=== PATIENT | male | born 1940 | race Caucasian/White ===

== ENCOUNTER 2016-04-04 10:55 | Inpatient (IN) | payer OTHER, MEDICARE ==
[~2016-04-04] VITALS: Ht 180.3 cm; Wt 63.8 kg
[~2016-04-04 10:55] MED LIST: ASPI325T PO; ATOR40TA16 PO; CARV3.125 PO; ENBR50IN2 SQ; FURO1TAB62 PO; LEVO100T5 PO; LISI10TA3 PO; MULTTAB67 PO; PLAV75TA29 PO; POTA1TAB4 PO; PROPOFOL 200 MG/20 ML AMP IV ONE
[2016-04-04] MEDS ORDERED: BACT400T PO (12:13)
[2016-04-04] MEDS ORDERED: VANCOMYCIN INJ 1,000 MG in SODIUM CHLOR 0.9% 250 ML INJ 250 ML IV STA (12:32)
[2016-04-04] MEDS ORDERED: CLINDAMYCIN INJ 900 MG in SODIUM CHLORIDE 0.9% INJ 100 ML IV STA (12:32)
[2016-04-04] MEDS ORDERED: PIPERACIL-TAZO 4.5 GM PREMIX 100 ML IV STA (12:32)
[2016-04-04 12:57] LABS: AUTOMATED NEUTROPHIL # 6.1 TH/MM3 (1.8-7.7); BASOPHIL % 0.3 % (0.0-2.0); EOSINOPHIL % 0.1 % (0.0-4.0); HEMATOCRIT 34.1 % (39.0-51.0); HEMO FLAGS DIFF FINAL; LYMPHOCYTE # 0.7 TH/MM3 (1.0-4.8); MEAN CORPUSCULAR HEMOGLOBIN 27.9 PG (27.0-34.0); MEAN CORPUSCULAR HGB CONC 33.3 % (32.0-36.0); MONO % 7.7 % (0.0-8.0); NEUT % 82.9 % (16.0-70.0); PLATELET COUNT 252 TH/MM3 (150-450); RED BLOOD COUNT 4.06 MIL/MM3 (4.50-5.90); RED CELL DISTRIBUTION WIDTH 15.1 % (11.6-17.2); WHITE BLOOD COUNT 7.3 TH/MM3 (4.0-11.0)
--- NOTE | 2016-04-04 13:04 | PD ---
HPI Chief Complaint: Skin Problem Time Seen by Provider: 12:35 Travel History International Travel<30 days: No Contact w/Intl Traveler<30days: No Traveled to known affect area: No History of Present Illness HPI 75-year-old male sent in by Dr. Rodriguez, for ongoing open nonhealing wound on the right lateral calf. Patient had injury to this area secondary to a bruise caused by his dogs chain wrapping around his right lower leg, but has ongoing nonhealing status post this time. Patient was sent in to be evaluated for vascular patency in the right lower leg, prior to plastic surgeon intervention. Dr. Campbell is the dramatic teacher evaluating the patient. Patient has no fever, chills, or other symptoms. He has no known drug allergies. PFSH Past Medical History Hx Anticoagulant Therapy: Yes (PLAVIX) Arthritis: Yes Cancer: No Cardiovascular Problems: Yes High Cholesterol: Yes Chest Pain: No Congestive Heart Failure: Yes Diabetes: No Diminished Hearing: No Endocrine: No Gastrointestinal Disorders: No Glaucoma: No Genitourinary: No Hepatitis: No Hiatal Hernia: No Hypertension: Yes Implanted Vascular Access Dvce: Yes Musculoskeletal: Yes Neurologic: No Psychiatric: No Respiratory: Yes ( ) Integumentary: No Thyroid Disease: Yes (hypothyroid) Tetanus Vaccination: Unknown Influenza Vaccination: Yes Past Surgical History Body Medical Devices: BILAT KNEES AND HIPS Coronary Stent: Yes Neurologic Surgery: Yes (CRANI 1979) Other Surgery: Yes Social History Alcohol Use: No Tobacco Use: No Substance Use: No Allergies-Medications (Allergen,Severity, Reaction): Coded Allergies: No Known Allergies (Verified , 04/04/16) Reported Meds & Prescriptions Reported Meds & Active Scripts Active Reported Bactrim (Sulfamethoxazole-Trimethoprim) 400-80 Mg Tab 1 Tab PO BID K-Tab (Potassium Chloride) 20 Meq Tab 20 Meq PO BID Multiple Vitamin 1 Tab 1 Tab PO DAILY Lisinopril 10 Mg Tab 10 Mg PO DAILY Levothyroxine (Levothyroxine Sodium) 100 Mcg Tab 100 Mcg PO DAILY Lasix (Furosemide) 20 Mg Tab 20 Mg PO BID Enbrel PF Inj (Etanercept) 50 mg/ml Syr 25 Mg SQ Q7D Plavix (Clopidogrel Bisulfate) 75 Mg Tab 75 Mg PO DAILY Coreg (Carvedilol) 3.125 Mg Tab 3.125 Mg PO BID Atorvastatin (Atorvastatin Calcium) 40 Mg Tab 40 Mg PO HS Aspirin 325 Mg Tab 325 Mg PO DAILY Review of Systems Except as stated in HPI: all other systems reviewed are Neg General / Constitutional: No: Fever Eyes: No: Visual changes HENT: No: Headaches Cardiovascular: No: Chest Pain or Discomfort Respiratory: No: Shortness of Breath Gastrointestinal: No: Abdominal Pain Genitourinary: No: Dysuria Musculoskeletal: No: Pain Skin: No Rash Neurologic: No: Weakness Psychiatric: No: Depression Endocrine: No: Polydipsia Hematologic/Lymphatic: No: Easy Bruising Physical Exam Narrative GENERAL: Patient appears in no acute distress. SKIN: Warm and dry. Patient is a large dressing on the right lower lateral calf which is kept in place, as it was just placed. Right lower foot is warm, and has good color. Patient does have multiple facial bruising throughout. HEAD: Atraumatic. Normocephalic. EYES: Pupils equal and round. No scleral icterus. No injection or drainage. ENT: No nasal bleeding or discharge. Mucous membranes pink and moist. NECK: Trachea midline. Neck is supple nontender. CARDIOVASCULAR: Regular rate and rhythm. RESPIRATORY: No accessory muscle use. Clear to auscultation. Breath sounds equal bilaterally. GASTROINTESTINAL: Abdomen soft, non-tender, nondistended. Hepatic and splenic margins not palpable. MUSCULOSKELETAL: Extremities without clubbing, cyanosis, or edema. No obvious deformities. NEUROLOGICAL: Awake and alert. No obvious cranial nerve deficits. Motor grossly within normal limits. Five out of 5 muscle strength in the arms and legs. Normal speech. PSYCHIATRIC: Appropriate mood and affect; insight and judgment normal. Data Data Orders Complete Blood Count With Diff (04/04/16 12:32) Comprehensive Metabolic Panel (04/04/16 12:32) Prothrombin Time / Inr (Pt) (04/04/16 12:32) Act Partial Throm Time (Ptt) (04/04/16 12:32) Iv Access Insert/Monitor (04/04/16 12:32) Ecg Monitoring (04/04/16 12:32) Oximetry (04/04/16 12:32) NPO (04/04/16 12:32) Sodium Chloride 0.9% Flush (Ns Flush) (04/04/16 12:45) Electrocardiogram (04/04/16 12:32) Oxygen Administration (04/04/16 12:32) Piperacil-Tazo 4.5 Gm Premix (Zosyn 4.5 (04/04/16 12:32) Clindamycin Inj (Cleocin Inj) (04/04/16 12:32) Vancomycin Inj (Vancomycin Inj) (04/04/16 12:32) Consult Cardiology (04/04/16 ) (Hub Use Only)Inp Phy Cons/Ref (04/04/16 ) Echo 2d Comp W/Dopp(Routine) (04/04/16 ) Admit Order (Ed Use Only) (04/04/16 13:39) Labs Laboratory Tests Test 04/04/16 12:30 White Blood Count 7.3 TH/MM3 Red Blood Count 4.06 MIL/MM3 Hemoglobin 11.3 GM/DL Hematocrit 34.1 % Mean Corpuscular Volume 84.0 FL Mean Corpuscular Hemoglobin 27.9 PG Mean Corpuscular Hemoglobin 33.3 % Concent Red Cell Distribution Width 15.1 % Platelet Count 252 TH/MM3 Mean Platelet Volume 8.5 FL Neutrophils (%) (Auto) 82.9 % Lymphocytes (%) (Auto) 9.0 % Monocytes (%) (Auto) 7.7 % Eosinophils (%) (Auto) 0.1 % Basophils (%) (Auto) 0.3 % Neutrophils # (Auto) 6.1 TH/MM3 Lymphocytes # (Auto) 0.7 TH/MM3 Monocytes # (Auto) 0.6 TH/MM3 Eosinophils # (Auto) 0.0 TH/MM3 Basophils # (Auto) 0.0 TH/MM3 CBC Comment DIFF FINAL Differential Comment Prothrombin Time 13.3 SEC Prothromb Time International 1.2 RATIO Ratio Activated Partial 32.9 SEC Thromboplast Time Sodium Level 137 MEQ/L Potassium Level 5.6 MEQ/L Chloride Level 105 MEQ/L Carbon Dioxide Level 21.9 MEQ/L Anion Gap 10 MEQ/L Blood Urea Nitrogen 35 MG/DL Creatinine 2.14 MG/DL Estimat Glomerular Filtration 30 ML/MIN Rate Random Glucose 90 MG/DL Calcium Level 9.4 MG/DL Total Bilirubin 0.8 MG/DL Aspartate Amino Transf 29 U/L (AST/SGOT) Alanine Aminotransferase 25 U/L (ALT/SGPT) Alkaline Phosphatase 65 U/L Total Protein 7.4 GM/DL Albumin 3.2 GM/DL MDM Medical Decision Making Medical Screen Exam Complete: Yes Emergency Medical Condition: Yes Differential Diagnosis Nonhealing wound in the right lower extremity. Vascular insufficiency of the right lower leg. Renal insufficiency. History of cardiac issues. Narrative Course .Patient is medically stable at time of exam. Patient is seen by Dr. Campbell. Labs ordered including CBC, CMP. CTA of right lower extremity is ordered. CBC is within normal limits, however the patient's potassium was elevated at 5.6 , BUN was 35, creatinine was 2.14, which is elevated from his previous creatinine of 1.9. CTA of the right lower leg is canceled due to the patient's creatinine level. Dr. Campbell spoke to Dr. Mackey, and the patient was admitted for plastics evaluation and treatment. Dr. Huitron was called for admission, and also spoke to by Dr. Campbell. Diagnosis Primary Impression: Open wound of right lower extremity Qualified Code: S81.801D - Open wound of right lower extremity, subsequent encounter Admitting Information Admitting Physician Requests: Admit Condition: Stable Jose Manuel Head Apr 04, 2016 13:04
[2016-04-04 13:05] LABS: APTT (PATIENT) 32.9 SEC (24.3-30.1); INTERNATIONAL NORMALIZED RATIO 1.2 RATIO; PROTHROMBIN TIME - PATIENT 13.3 SEC (9.8-11.6)
[2016-04-04 13:17] LABS: ALT (GPT) 25 U/L (12-78); ANION GAP 10 MEQ/L (5-15); AST (GOT) 29 U/L (15-37); BICARBONATE 21.9 MEQ/L (21.0-32.0); BLOOD UREA NITROGEN 35 MG/DL (7-18); CHLORIDE 105 MEQ/L (98-107); GLOMERULAR FILTRATION RATE 30 ML/MIN (>89); POTASSIUM 5.6 MEQ/L (3.5-5.1); SODIUM (NA) 137 MEQ/L (136-145)
[2016-04-04 13:20] LABS: ALKALINE PHOSPHATASE 65 U/L (45-117); TOTAL BILIRUBIN ADULT 0.8 MG/DL (0.2-1.0)
[2016-04-04 13:57] VITALS: O2SAT 97
[2016-04-04 14:00] VITALS: BP 110/54; PULSE 71; RESP 18; O2SAT 95
--- NOTE | 2016-04-04 14:18 | MB ---
cc: TERESA COLEMAN DATE OF CONSULTATION: 04/04/2016 REASON FOR CONSULTATION PAD. HISTORY OF PRESENT ILLNESS This a very nice 75-year-old gentleman who I have followed in the outpatient setting for sometime. He has a history of known probable ischemic cardiomyopathy and prior percutaneous intervention to the left anterior descending coronary artery earlier this year. He initially presented with a reduced ejection fraction, moderate mitral regurgitation. He has symptomatically been doing pretty well. He just a few weeks ago his dog's chain got wrapped around his leg causing a hematoma in the right pretibial region. He has spoken with his primary care doctor, Dr. Calvillo, who recommended he go to [facility] at [facility]. There he was seen and had the hematoma opened and drained. Since that time it has remained open and had some clots and some erythema around it. He saw me in the office yesterday with concerns for obviously non-healing and consideration for any underlying peripheral arterial disease. He had an order for an outpatient arterial ultrasound. He saw Dr. Joiner of plastic surgery today who was anticipating debridement and possible skin grafting. After discussion with the family we elected just to bring him into the emergency department where we could obtain a CT with runoff of the right lower extremity rather than ultrasound to document if there is any underlying PAD in anticipation of upcoming surgery. He is symptomatically otherwise doing well. No chest pain or shortness of breath. PAST MEDICAL HISTORY 1. History of ischemic cardiomyopathy with ejection fraction 20-25%. Moderate mitral regurgitation. PCI with drug-eluting stent to the mid left anterior descending coronary artery. 2. Hypertension. 3. Hyperlipidemia. 4. Hypothyroidism. 5. Bilateral knee and hip repair. 6. Craniotomy in 1978. SOCIAL HISTORY Works at the [employer]. Denies any alcohol, tobacco or drug use. ALLERGIES No known drug allergies. MEDICATIONS Reported medications: 1. Bactrim. 2. Potassium. 3. Lisinopril. 4. Levothyroxine. 5. Lasix. 6. Enbrel. 7. Plavix. 8. Coreg. 9. Atorvastatin. 10.Aspirin. REVIEW OF SYSTEMS A 12-point review of systems was performed and negative unless otherwise noted in the history of present illness. PHYSICAL EXAMINATION VITAL SIGNS: Stable. GENERAL: Alert and oriented x3, in no acute distress. HEENT: Pupils are equal and reactive to light and accommodation. Extraocular movements are intact. NECK: No jugular venous distention. No thyromegaly or lymphadenopathy. No carotid bruits. LUNGS: Clear to auscultation bilaterally. HEART: 2/6 holosystolic murmur left sternal border. ABDOMEN: Nontender, nondistended. Good bowel sounds. No hepatosplenomegaly. EXTREMITIES: No clubbing or cyanosis. There is 1+ edema in the right lower extremity. His right pretibial region is bandaged. There is some erythema. The dorsalis pedis pulse is very weak but posterior tibial is 1+, popliteal is 1+, common femoral 2+. LABORATORY DATA WBC 7.3, hemoglobin 11.3, platelet count 252. INR is 1.2. Sodium 137, potassium 5.6, BUN 35, creatinine 2.14. The last labs we have available were from October 05, 2015 which showed creatinine of 1.03. ASSESSMENT 1. Nonhealing right pretibial lower extremity ulcer. 2. Ischemic cardiomyopathy. 3. Percutaneous intervention with drug-eluting stent to the left anterior descending coronary artery. 4. Moderate valvular heart disease. 5. Acute renal failure. PLAN Unfortunately given his elevated creatinine we are not going to be able to obtain a CTA and runoff of the right lower extremity as anticipated. Options are limited in terms of imaging modalities. Will contact radiology to see if arterial ultrasound is a consideration. A less potential option would be peripheral angiography with CO2 which is non-nephrotoxic, but that would have to be scheduled for potentially Thursday or Thursday. His acute renal failure etiology is unclear. He is on lisinopril which I would hold and he is on Lasix which I would hold. May consider gentle hydration. In the setting of his cardiomyopathy will have to be careful. Will obtain a 2-D echocardiogram. Will have to coordinate care with plastic surgery. Plan for debridement this afternoon. Of course anything any skin grafting will require adequate inflow for wound healing. Discussed the case with Dr. Los Brower who is going to cover from a vascular perspective for me over the weekend. I will resume care back on Thursday, and hopefully we will be able to obtain some answers in the meantime. Tenative plan for peripheral angiogram with CO2 on am IV antibiotics till then MD TALYA Conteh /1:24 PM /1:50 PM RILEY
--- NOTE | 2016-04-04 15:34 | HHI.HP ---
HPI Service [facility] Primary Care Physician Ayo Calvillo MD Admission Diagnosis Nonhealing wound right leg/Renal Failure Chief Complaint: Nonhealing right leg wound Travel History International Travel<30 Days: No Contact w/Intl Traveler <30 Da: No Traveled to Known Affected Are: No History of Present Illness Mr. Jacinto is a 75 y/o gentleman with probable ischemic cardiomyopathy with EF 20-25%, HTN, and CAD s/p PCI with HAKEEM to the left anterior descending coronary artery in 09/2015. Pt was sent to the ER at [facility] on 04/04/16 due to a nonhealing RLE wound. Pt reports that a few weeks ago his dog's chain got wrapped around his leg causing a hematoma in the right pretibial region. Pt was seen at [facility] at [facility] and had the hematoma opened and drained. Since that time it has remained open and had some clots and some erythema around it. He was seen by Dr. Campbell yesterday with concerns over his non-healing wound and consideration for any underlying peripheral arterial disease. He saw Dr. Joiner today who was anticipating debridement and possible skin grafting. After discussion between Dr. Campbell and the pt/family they elected to go to the ED to obtain a CT with runoff of the right lower extremity rather than ultrasound to document if there is any underlying PAD in anticipation of upcoming surgery. In the ER his renal function had acutely worsened with Cr 2.14. Due to the acute renal insufficiency pt will be unable to have the CTA with runoff of the right lower extremity as anticipated. The pt is being admitted for further workup for potential PVD, evaluation of this acute renal insufficiency as well as consultation with Dr. Joiner for possible surgical debridement and/or skin grafting. Review of Systems Constitutional: DENIES: Fever, Chills Eyes: DENIES: Vision loss Ears, nose, mouth, throat: DENIES: Hearing loss Respiratory: DENIES: Cough, Shortness of breath Cardiovascular: COMPLAINS OF: Lower Extremity Edema, DENIES: Chest pain, Palpitations Gastrointestinal: DENIES: Abdominal pain, Nausea, Vomiting Genitourinary: DENIES: Hematuria, Dysuria Integumentary: COMPLAINS OF: Abnormal pigmentation Neurologic: DENIES: Headache, Localized weakness Past Family Social History Past Medical History Ischemic cardiomyopathy with ejection fraction 20-25% Moderate mitral regurgitation CAD s/p PCI with drug-eluting stent to the mid left anterior descending coronary artery Hypertension Hyperlipidemia Hypothyroidism Rheumatoid arthritis Nephrolithiasis Hx of skin cancer Past Surgical History PCI with drug-eluting stent to the mid left anterior descending coronary artery on 10/09/[address] Campbell Bilateral total knee arthroplasties Bilateral hip arthroplasties Cystoscopy with internal Urethrotomy Craniotomy for benign tumor Reported Medications Bactrim (Sulfamethoxazole-Trimethoprim) 400-80 Mg Tab 1 Tab PO BID K-Tab (Potassium Chloride) 20 Meq Tab 20 Meq PO BID Multiple Vitamin 1 Tab 1 Tab PO DAILY Lisinopril 10 Mg Tab 10 Mg PO DAILY Levothyroxine (Levothyroxine Sodium) 100 Mcg Tab 100 Mcg PO DAILY Lasix (Furosemide) 20 Mg Tab 20 Mg PO BID Enbrel PF Inj (Etanercept) 50 mg/ml Syr 25 Mg SQ Q7D Plavix (Clopidogrel Bisulfate) 75 Mg Tab 75 Mg PO DAILY Coreg (Carvedilol) 3.125 Mg Tab 3.125 Mg PO BID Atorvastatin (Atorvastatin Calcium) 40 Mg Tab 40 Mg PO HS Aspirin 325 Mg Tab 325 Mg PO DAILY Allergies: Coded Allergies: No Known Allergies (Verified , 04/04/16) Family History Noncontributory Social History Denies any alcohol, tobacco or illicit drug use Pt is currently 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 HEENT: Atraumatic. Normocephalic. No temporal or scalp tenderness. No scleral icterus. Airway patent. NECK: Trachea midline, supple, nontender. CARDIO: Regular. RESP: CTA bilaterally. No wheezes, rales, or rhonchi. ABD: +BS, soft, non-tender, nondistended. EXT: Right pretibial wound NEURO: Awake and alert. Motor and sensory grossly within normal limits. Normal speech. Laboratory Laboratory Tests Test 04/04/16 12:30 White Blood Count 7.3 Red Blood Count 4.06 Hemoglobin 11.3 Hematocrit 34.1 Mean Corpuscular Volume 84.0 Mean Corpuscular Hemoglobin 27.9 Mean Corpuscular Hemoglobin 33.3 Concent Red Cell Distribution Width 15.1 Platelet Count 252 Mean Platelet Volume 8.5 Neutrophils (%) (Auto) 82.9 Lymphocytes (%) (Auto) 9.0 Monocytes (%) (Auto) 7.7 Eosinophils (%) (Auto) 0.1 Basophils (%) (Auto) 0.3 Neutrophils # (Auto) 6.1 Lymphocytes # (Auto) 0.7 Monocytes # (Auto) 0.6 Eosinophils # (Auto) 0.0 Basophils # (Auto) 0.0 CBC Comment DIFF FINAL Differential Comment Prothrombin Time 13.3 Prothromb Time International 1.2 Ratio Activated Partial 32.9 Thromboplast Time Sodium Level 137 Potassium Level 5.6 Chloride Level 105 Carbon Dioxide Level 21.9 Anion Gap 10 Blood Urea Nitrogen 35 Creatinine 2.14 Estimat Glomerular Filtration 30 Rate Random Glucose 90 Calcium Level 9.4 Total Bilirubin 0.8 Aspartate Amino Transf 29 (AST/SGOT) Alanine Aminotransferase 25 (ALT/SGPT) Alkaline Phosphatase 65 Total Protein 7.4 Albumin 3.2 Result Diagram: 04/04/16 1230 04/04/16 1230 Septic Shock Reassessment Heart: Regular rate and rhythm Lungs: Clear Skin: Warm Capillary Refill: <2 seconds Assessment and Plan Problem List: (1) Open wound of right lower extremity Status: Chronic Plan: - Pt admitted to [facility] on 04/04/16 due to a nonhealing RLE wound which occurred a few weeks ago when his dog's chain got wrapped around his leg causing a hematoma in the right pretibial region. - Pt was seen at [facility] and had the hematoma opened and drained. Since that time it has remained open and had some clots and some erythema around it. - He was seen by Dr. Campbell yesterday with concerns over his non-healing wound and consideration for any underlying peripheral arterial disease. - He saw Dr. Joiner today who was anticipating debridement and possible skin grafting. - Pt was sent to the ED to obtain a CT with runoff of the right lower extremity to document if there is any underlying PAD in anticipation of upcoming surgery. - In the ER his renal function had acutely worsened with Cr 2.14. Due to the acute renal insufficiency pt will be unable to have the CTA with runoff of the right lower extremity as anticipated. - Dr. Campbell is following and is planning for further evaluation possible peripheral angiogram with CO2 early next week - Dr. Joiner and pt is going for surgical intervention today - Pt was given Zosyn, Clindamycin and Vancomycin in the ER - We will continue Clindamycin - Cont. Clindamycin IV - Gentle IVF hydration in the setting of his ischemic cardiomyopathy and EF 20- 25%, pt to receive IVF intraoperatively - Repeat labs in AM - Supportive care - DVT prophylaxis (2) Hematoma of right lower extremity Status: Chronic Plan: - See above (3) Acute renal insufficiency Status: Acute Plan: - Etiology unclear. ?Medication induced pt is on Lasix, Lisinopril and noted to be on Bactrim - Hold Nephrotoxic meds at this time - Monitor closely for volume overload with IVF intraoperatively (4) Ischemic cardiomyopathy Status: Chronic Plan: - Pt with EF 20-25% - Cont. BB - Monitor closely for any volume overload with receiving IVF intraoperatively (5) Hypothyroidism Status: Chronic Plan: - Home meds continued (6) Rheumatoid arthritis Status: Chronic Assessment and Plan Patient examined. Assessment and plan formulated with Jordyn Beckwith PA-C. I agree with the above. Physician Certification 2 Midnight Certification Type: Admission for Inpatient Services Order for Inpatient Services The services are ordered in accordance with Medicare regulations or non- Medicare payer requirements, as applicable. In the case of services not specified as inpatient-only, they are appropriately provided as inpatient services in accordance with the 2-midnight benchmark. Estimated LOS (days): 4 4 days is the estimated time the patient will need to remain in the hospital, assuming treatment plan goals are met and no additional complications. Post-Hospital Plan: Not yet determined Problem Qualifiers (1) Open wound of right lower extremity: Qualified Code: S81.801D - Open wound of right lower extremity, subsequent encounter Jordyn Beckwith Apr 04, 2016 15:34 Bishop Huitron DO Apr 05, 2016 12:12
[2016-04-04] MEDS ORDERED: BUPIVACAINE HCL PF 0.5% 30 ML VIAL ONE (15:51)
[2016-04-04] MEDS ORDERED: BACITRACIN TOP OINT 15 GM TUBE ONE (15:52)
[2016-04-04] MEDS ORDERED: LIDOCAINE 1%/EPINEPHrine 1:100,000 SOLN 20 ML VIAL ONE (15:52)
[2016-04-04 16:35] VITALS: BP 117/65; PULSE 75; RESP 18; O2SAT 96
[2016-04-04] MEDS ORDERED: DO NOT ADM ANY ANTICOAGULANT DRUGS XX PRN (18:09)
[2016-04-04 20:00] VITALS: BP 135/65; PULSE 67; RESP 19; TEMP 98; O2SAT 98
[2016-04-04] MEDS ORDERED: ACETAMINOPHEN/HYDROcodone 325 MG/5 MG TAB PO PRN (20:00)
--- NOTE | 2016-04-04 20:02 | MP ---
cc: NEW JOINER M.D. DATE OF SURGERY: 04/04/2016. PREOPERATIVE DIAGNOSIS: Right leg necrotic wound with large hematoma. POSTOPERATIVE DIAGNOSIS: Right leg necrotic wound with large hematoma. OPERATIVE PROCEDURE PERFORMED: Excision of necrotic wound right leg and evacuation of hematoma with wound debridement. SURGEON: New Joiner M.D. ANESTHESIA: General. INDICATIONS FOR THE PROCEDURE: This is a 75-year-old white male who is on anticoagulation with Plavix who was injured about two weeks ago when a dog leash scraped hard against his leg on the outer aspect right side and he sustained a large lipoma. It was treated conservatively at that time including an emergency room visit. Eventually the hematoma managed to break through the skin with a large portion of the skin dying. He did have a compression bandage in place initially at the time of initial treatment. Subsequently he has simple dressings all along. The wound is becoming somewhat cellulitic and the patient was seen at the earlier today by myself in the clinic. He was advised to have the surgery as soon as possible to clean up the wound and prevent any spreading infection so that he has bilateral knee joint prosthesis and a seeding of the knee joints may also create a much bigger problems. The patient is willing to go to surgery. DESCRIPTION OF THE PROCEDURE IN DETAIL: The patient was brought to the operating room and was in the supine position. Anesthesia was started. Prep and drape was done. A time-out was called and completed. He had already had received multiple antibiotics through the emergency room. All the skin was sharply excised with the knife and then using the back end of a blunt forceps, the hematoma was meticulously removed approximately 100 mL of blood clots were noted. The hematoma extends both above and below the wound undermining it approximately 2 to 2-1/2 inches on the lower part towards the ankle and is about 2 inches towards the middle of the legs. The wound was scrubbed meticulously with a Betadine scrub brush and sponge and taking a portion of the brush side to reach the narrow portions of the wound as well. The wound was then rinsed completely clean and was packed with Betadine and Betadine soap and 3 inch Josefina gently. Sterile dressing was applied. Also, it should be noted that a culture was taken before the prep and drape was done. No complications. Active bleeding approximately 5-10 mL. signed, not fully reviewed MD BALDEV Esteban/ALEXANDRA /6:09 PM /7:54 PM RILEY
[2016-04-04 20:22] VITALS: PULSE 66
[2016-04-04] MEDS: CARVEDILOL 3.125 MG TAB PO SCH (21:25)
[2016-04-04] MEDS: ATORVASTATIN 40 MG TAB PO SCH (21:25)
--- NOTE | 2016-04-04 22:08 | EKG ---
Date Performed: 04/04/2016 Time Performed: 13:49:02 PTAGE: 75 years EKG: Sinus rhythm LEFT BUNDLE BRANCH BLOCK ABNORMAL ECG NO PREVIOUS TRACING DOCTOR: Chester Stone Interpretating Date/Time 04/04/2016 22:07:33
[2016-04-05] VITALS (7 sets, daily range): BP systolic 107–134; BP diastolic 58–73; PULSE 73–88; RESP 17–20; TEMP 97.1–98.2; O2SAT 95–99
[2016-04-05] MEDS: CLINDAMYCIN INJ 900 MG in SODIUM CHLORIDE 0.9% INJ 100 ML IV SCH ×4 (00:57→23:56)
[2016-04-05] MEDS: LEVOTHYROXINE SODIUM 100 MCG TAB PO SCH (06:00)
[2016-04-05 07:27] LABS: AUTOMATED NEUTROPHIL # 3.6 TH/MM3 (1.8-7.7); BASOPHIL % 0.5 % (0.0-2.0); EOSINOPHIL # 0.2 TH/MM3 (0-0.4); EOSINOPHIL % 3.5 % (0.0-4.0); HEMATOCRIT 31.9 % (39.0-51.0); HEMO FLAGS DIFF FINAL; LYMPH % 22.3 % (9.0-44.0); LYMPHOCYTE # 1.2 TH/MM3 (1.0-4.8); MEAN CELL VOLUME 83.4 FL (80.0-100.0); MEAN CORPUSCULAR HEMOGLOBIN 27.9 PG (27.0-34.0); MEAN CORPUSCULAR HGB CONC 33.5 % (32.0-36.0); MONO % 8.1 % (0.0-8.0); NEUT % 65.6 % (16.0-70.0); PLATELET COUNT 216 TH/MM3 (150-450); RED BLOOD COUNT 3.82 MIL/MM3 (4.50-5.90); RED CELL DISTRIBUTION WIDTH 15.2 % (11.6-17.2); WHITE BLOOD COUNT 5.4 TH/MM3 (4.0-11.0)
[2016-04-05 07:49] LABS: BICARBONATE 23.1 MEQ/L (21.0-32.0); MAGNESIUM 2.6 MG/DL (1.5-2.5); POTASSIUM 4.7 MEQ/L (3.5-5.1)
[2016-04-05] MEDS: CLOPIDOGREL 75 MG TAB PO SCH (09:06)
[2016-04-05] MEDS: CARVEDILOL 3.125 MG TAB PO SCH ×2 (09:06→20:34)
[2016-04-05] MEDS: ASPIRIN 325 MG TAB PO SCH (09:06)
[2016-04-05] MEDS ORDERED: POVIDONE IODINE 10% SOLN 480 ML BTL TOPICAL PRN (11:30)
--- NOTE | 2016-04-05 12:17 | HHI.PR ---
Subjective Remarks no new complaints. Objective Vitals Vital Signs Date Time Temp Pulse Resp B/P Pulse Ox O2 Delivery O2 Flow Rate FiO2 04/05/16 09:29 98 21 04/05/16 08:00 97.3 80 20 126/73 97 04/05/16 04:00 98.2 88 17 126/68 98 04/05/16 00:00 98.0 76 18 120/68 98 04/04/16 20:22 66 04/04/16 20:00 98.0 67 19 135/65 98 04/04/16 20:00 Room Air 04/04/16 18:45 66 14 123/70 98 Nasal Cannula 2 04/04/16 18:30 73 14 125/71 98 Nasal Cannula 2 04/04/16 18:09 97.9 86 14 129/69 98 Nasal Cannula 2 04/04/16 16:35 75 18 117/65 96 Room Air 04/04/16 14:00 71 18 110/54 95 Room Air 04/04/16 13:57 97 Room Air 04/04/16 13:57 97 Room Air 04/04/16 04/04/16 04/05/16 15:00 23:00 07:00 Intake Total 840 ml 120 ml Output Total 305 ml Balance 535 ml 120 ml Intake Oral 240 ml 120 ml Other 600 ml Output Urine Total 300 ml Estimated Blood Loss 5 ml # Voids 1 Result Diagram: 04/05/16 0640 04/05/16 0640 Objective Remarks GENERAL: This is a well-nourished, well-developed patient, in no apparent distress. CARDIOVASCULAR: Regular rate and rhythm without murmurs, gallops, or rubs. RESPIRATORY: Clear to auscultation. Breath sounds equal bilaterally. No wheezes , rales, or rhonchi. GASTROINTESTINAL: Abdomen soft, non-tender, nondistended. Normal active bowel sounds MUSCULOSKELETAL: RLE wrapped NEURO: Alert & Oriented x3, but confused at times. Moves all ext x4 A/P Problem List: (1) Open wound of right lower extremity Status: Chronic Plan: - Pt admitted to [facility] [place] on 04/04/16 due to a nonhealing RLE wound which occurred a few weeks ago when his dog's chain got wrapped around his leg causing a hematoma in the right pretibial region. - Pt was seen at [facility] at [facility] and had the hematoma opened and drained. Since that time it has remained open and had some clots and some erythema around it. - He was seen by Dr. Campbell (04/03/16) with concerns over his non-healing wound and consideration for any underlying peripheral arterial disease. - He saw Dr. Joiner (04/04/16) who was anticipating debridement and possible skin grafting. - Pt was sent to the ED to obtain a CT with runoff of the right lower extremity to document if there is any underlying PAD in anticipation of upcoming surgery. - In the ER his renal function had acutely worsened with Cr 2.14. Due to the acute renal insufficiency pt will be unable to have the CTA with runoff of the right lower extremity as anticipated. - Dr. Campbell is following and is planning for further evaluation possible peripheral angiogram with CO2 early next week - Pt was given Zosyn, Clindamycin and Vancomycin in the ER - Pt underwent RLE wound debridement and evacuation of hematoma (04/05/16) performed by Dr. Joiner - Cont. Clindamycin IV - Supportive care - DVT prophylaxis (2) Hematoma of right lower extremity Status: Chronic Plan: - See above (3) Acute renal insufficiency Status: Acute Plan: - improved from admission - continue to hold lasix and lisinopril for now (4) Ischemic cardiomyopathy Status: Chronic Plan: - Pt with EF 20-25% - Cont. BB (5) Hypothyroidism Status: Chronic Plan: - Home meds continued (6) Rheumatoid arthritis Status: Chronic Plan: - resume outpt prednisone 4mg PO daily Problem Qualifiers (1) Open wound of right lower extremity: Qualified Code: S81.801D - Open wound of right lower extremity, subsequent encounter (2) Rheumatoid arthritis: Bishop Huitron DO Apr 05, 2016 12:17
[2016-04-05] MEDS: predniSONE 1 MG TAB PO SCH (15:13)
--- NOTE | 2016-04-05 16:47 | PD.VS.PN ---
Subjective Subjective/Hospital Course Hospitalized for right lower extremity leg wound created from trauma from pit- bull dog leash. Outpatient wound care with debridement and now hospitalized for wound debridement and antibiotics. Objective Vitals/I&O Date Time Temp Pulse Resp B/P Pulse Ox O2 Delivery O2 Flow Rate FiO2 04/05/16 12:00 97.5 80 20 107/60 95 04/05/16 09:29 98 21 04/05/16 08:00 97.3 80 20 126/73 97 04/05/16 04:00 98.2 88 17 126/68 98 04/05/16 00:00 98.0 76 18 120/68 98 04/04/16 20:22 66 04/04/16 20:00 98.0 67 19 135/65 98 04/04/16 20:00 Room Air 04/04/16 18:45 66 14 123/70 98 Nasal Cannula 2 04/04/16 18:30 73 14 125/71 98 Nasal Cannula 2 04/04/16 18:09 97.9 86 14 129/69 98 Nasal Cannula 2 04/05/16 04/05/16 04/05/16 07:00 15:00 23:00 Intake Total 120 ml 480 ml Balance 120 ml 480 ml Physical Exam Right calf wrapped with kerlex dressing. Right foot warm with palpable PT and Doppler DP. Scattered telengectasias bilateral lower extremities. Laboratory Laboratory Tests Test 04/05/16 06:40 White Blood Count 5.4 Red Blood Count 3.82 Hemoglobin 10.7 Hematocrit 31.9 Mean Corpuscular Volume 83.4 Mean Corpuscular Hemoglobin 27.9 Mean Corpuscular Hemoglobin 33.5 Concent Red Cell Distribution Width 15.2 Platelet Count 216 Mean Platelet Volume 8.5 Neutrophils (%) (Auto) 65.6 Lymphocytes (%) (Auto) 22.3 Monocytes (%) (Auto) 8.1 Eosinophils (%) (Auto) 3.5 Basophils (%) (Auto) 0.5 Neutrophils # (Auto) 3.6 Lymphocytes # (Auto) 1.2 Monocytes # (Auto) 0.4 Eosinophils # (Auto) 0.2 Basophils # (Auto) 0.0 CBC Comment DIFF FINAL Differential Comment Sodium Level 138 Potassium Level 4.7 Chloride Level 107 Carbon Dioxide Level 23.1 Anion Gap 8 Blood Urea Nitrogen 23 Creatinine 1.40 Estimat Glomerular Filtration 50 Rate Random Glucose 84 Calcium Level 8.9 Magnesium Level 2.6 Date/Time Procedure Status Source Growth 04/04/16 17:45 Gram Stain - Final Resulted Wound Leg 04/04/16 17:45 Wound Culture - Preliminary Resulted S. Aureus Mrsa 04/04/16 17:45 Fungal Smear - Final Resulted Wound Leg NO FUNGAL ELEMENTS SEEN. 04/04/16 17:45 Fungal Culture Resulted Wound Leg Pending 04/04/16 17:45 Acid Fast Stain Worksheet Wound Leg Pending 04/04/16 17:45 Mycobacterial Culture Worksheet Wound Leg Pending Assessment and Plan Assessment: (1) Open wound of right lower extremity Status: Chronic Plan Patient is a 75 year old male with a right lower extremity wound status post debridement. Patient has MRSA cultured from the wound (secondary to dirty dog leash inciting trauma). Plan for CO2 angio early next week (tentative scheduled for thursday with Dr. Stone). Los Brower DO, FACS [employer] [facility] [facility] Problem Qualifiers (1) Open wound of right lower extremity: Qualified Code: S81.801D - Open wound of right lower extremity, subsequent encounter Los Brower DO Apr 05, 2016 16:47
[2016-04-05] MEDS: ATORVASTATIN 40 MG TAB PO SCH (20:34)
[2016-04-06] VITALS (8 sets, daily range): BP systolic 110–150; BP diastolic 63–75; PULSE 63–75; RESP 17–20; TEMP 97.3–98.1; O2SAT 94–100
[2016-04-06] MEDS: LEVOTHYROXINE SODIUM 100 MCG TAB PO SCH (05:04)
--- NOTE | 2016-04-06 08:24 | EC ---
Study Study Date:04/05/2016 STUDY CONCLUSIONS SUMMARY - Left ventricle: The cavity size was dilated. Wall thickness was normal. Systolic function was severely reduced. The estimated ejection fraction was in the range of 20% to 25%. Diffuse hypokinesis. - Aortic valve: Valve mobility was restricted. Transvalvular velocity was increased. There was mild stenosis. - Mitral valve: Mild to moderate regurgitation. - Left atrium: The atrium was mildly dilated. If LV function is below 40, please consider prescribing an ACEI or ARB or document rationale for non-use. PROCEDURE DATA STUDY STATUS: Elective. Procedure: Transthoracic echocardiography. Image quality was adequate. Scanning was performed from the parasternal, apical, and subcostal acoustic windows. Study completion: The patient tolerated the procedure well. Transthoracic echocardiography. M-mode, complete 2D, complete spectral Doppler, and color Doppler. Patient status: Inpatient. CARDIAC ANATOMY LEFT VENTRICLE: The cavity size was dilated. Wall thickness was normal. Systolic function was severely reduced. The estimated ejection fraction was in the range of 20% to 25%. Diffuse hypokinesis. AORTIC VALVE: Not well visualized. Moderately thickened, moderately calcified leaflets. Valve mobility was restricted. Doppler: Transvalvular velocity was increased. There was mild stenosis. No regurgitation. Mean gradient: 12mm Hg (S). Peak gradient: 23mm Hg (S). AORTA: Aortic root: The aortic root was normal in size. MITRAL VALVE: Mildly thickened leaflets, . Doppler: Transvalvular velocity was within the normal range. There was no evidence for stenosis. Mild to moderate regurgitation. LEFT ATRIUM: The atrium was mildly dilated. RIGHT VENTRICLE: The cavity size was normal. Wall thickness was normal. PULMONIC VALVE: Poorly visualized. Doppler: Transvalvular velocity was within the normal range. There was no evidence for stenosis. No regurgitation. TRICUSPID VALVE: Structurally normal valve. Doppler: Transvalvular velocity was within the normal range. Trace to mild regurgitation. PULMONARY ARTERY: The main pulmonary artery was normal-sized. RIGHT ATRIUM: The atrium was normal in size. PERICARDIUM: There was no pericardial effusion. SYSTEMIC VEINS: Inferior vena cava: The vessel was normal in size. BASIC MEASUREMENTS ADULT Normal Left ventricle LV internal dimension, ED, chordal level, 51 mm 43-52 PLAX LV internal dimension, ES, chordal level, *46.4 mm 23-38 PLAX Fractional shortening, chordal level, PLAX *9 % >29 LV posterior wall thickness, ED 9.89 mm IVS/LVPW ratio, ED 1.03 <1.3 Ventricular septum Septal thickness, ED 10.2 mm Left atrium Anterior-posterior dimension 48 mm Right ventricle RV internal dimension, ED, PLAX 23.2 mm 19-38 DOPPLER MEASUREMENTS ADULT Normal Aortic valve Peak velocity, S 241 cm/s Mean velocity, S 158 cm/s VTI, S 51.2 cm Mean gradient, S 12 mm Hg Peak gradient, S 23 mm Hg Mitral valve Peak E-wave velocity 56.7 cm/s Peak A-wave velocity 70.6 cm/s Peak E/A ratio 0.8 Maximal regurgitant velocity 516 cm/s Tricuspid valve Regurgitant peak velocity 251 cm/s Peak RV-RA gradient, S 25 mm Hg Maximal regurgitant velocity 251 cm/s Systemic veins Estimated CVP 10 mm Hg LEGEND: Mean values are shown as u=mean value. Asterisk (*) brown values outside specified normal range. Prepared and signed by Dexter Webster [id number]
[2016-04-06] MEDS: CLOPIDOGREL 75 MG TAB PO SCH (09:42)
[2016-04-06] MEDS: predniSONE 1 MG TAB PO SCH (09:43)
[2016-04-06] MEDS: CARVEDILOL 3.125 MG TAB PO SCH ×2 (09:43→21:40)
[2016-04-06] MEDS: ASPIRIN 325 MG TAB PO SCH (09:43)
[2016-04-06] MEDS: CLINDAMYCIN INJ 900 MG in SODIUM CHLORIDE 0.9% INJ 100 ML IV SCH ×2 (09:45→15:37)
--- NOTE | 2016-04-06 16:02 | HHI.PR ---
Subjective Remarks No new complaints. Objective Vitals Vital Signs Date Time Temp Pulse Resp B/P Pulse Ox O2 Delivery O2 Flow Rate FiO2 04/06/16 12:00 97.3 75 20 110/71 100 04/06/16 11:45 Room Air 21 04/06/16 08:00 98.1 63 20 144/71 98 04/06/16 04:00 98.0 68 18 145/75 98 04/06/16 00:00 98.1 72 17 129/63 94 04/05/16 20:00 97.2 75 18 134/58 97 04/05/16 20:00 Room Air 04/05/16 20:00 73 04/05/16 04/05/16 04/06/16 15:00 23:00 07:00 Intake Total 480 ml 480 ml 100 ml Balance 480 ml 480 ml 100 ml Intake Oral 480 ml 480 ml 100 ml # Voids 3 0 1 # Bowel Movements 0 0 0 Result Diagram: 04/05/16 0640 04/05/16 0640 Objective Remarks GENERAL: This is a well-nourished, well-developed patient, in no apparent distress. CARDIOVASCULAR: Regular rate and rhythm without murmurs, gallops, or rubs. RESPIRATORY: Clear to auscultation. Breath sounds equal bilaterally. No wheezes , rales, or rhonchi. GASTROINTESTINAL: Abdomen soft, non-tender, nondistended. Normal active bowel sounds MUSCULOSKELETAL: RLE wrapped NEURO: Alert & Oriented x3, but confused at times. Moves all ext x4 A/P Problem List: (1) Open wound of right lower extremity Status: Chronic Plan: - Pt admitted to [facility] [place] on 04/04/16 due to a nonhealing RLE wound which occurred a few weeks ago when his dog's chain got wrapped around his leg causing a hematoma in the right pretibial region. - Pt was seen at [facility] at [facility] and had the hematoma opened and drained. Since that time it has remained open and had some clots and some erythema around it. - He was seen by Dr. Campbell (04/03/16) with concerns over his non-healing wound and consideration for any underlying peripheral arterial disease. - He saw Dr. Joiner (04/04/16) who was anticipating debridement and possible skin grafting. - Pt was sent to the ED to obtain a CT with runoff of the right lower extremity to document if there is any underlying PAD in anticipation of upcoming surgery. - In the ER his renal function had acutely worsened with Cr 2.14. Due to the acute renal insufficiency pt will be unable to have the CTA with runoff of the right lower extremity as anticipated. - Dr. Campbell is following and is planning for further evaluation possible peripheral angiogram with CO2 early next week - Pt was given Zosyn, Clindamycin and Vancomycin in the ER - Pt underwent RLE wound debridement and evacuation of hematoma (04/05/16) performed by Dr. Joiner - wound culture (04/05/16) --> MRSA with sensitivity to clindamycin - Cont. Clindamycin IV - Supportive care - DVT prophylaxis (2) Hematoma of right lower extremity Status: Chronic Plan: - See above (3) Acute renal insufficiency Status: Acute Plan: - improved from admission - continue to hold lasix and lisinopril for now (4) Ischemic cardiomyopathy Status: Chronic Plan: - Pt with EF 20-25% - Cont. BB (5) Hypothyroidism Status: Chronic Plan: - Home meds continued (6) Rheumatoid arthritis Status: Chronic Plan: - resume outpt prednisone 4mg PO daily Problem Qualifiers (1) Open wound of right lower extremity: Qualified Code: S81.801D - Open wound of right lower extremity, subsequent encounter (2) Rheumatoid arthritis: Bishop Huitron DO Apr 06, 2016 16:02
--- NOTE | 2016-04-06 16:36 | RADRPT ---
EXAM DATE/TIME: 04/06/2016 16:20 [place] COMPARISON: CHEST SINGLE AP, July 20, 2015, 9:29. INDICATIONS : Cough MEDICAL HISTORY : None. SURGICAL HISTORY : None. ENCOUNTER: Initial ACUITY: 1 day PAIN SCORE: 0/10 LOCATION: Bilateral chest FINDINGS: A single view of the chest demonstrates the lungs to be symmetrically aerated without evidence of mas s, infiltrate or effusion. The cardiomediastinal contours are unremarkable. Osseous structures are intact. CONCLUSION: No acute disease. Nick Newton MD on April 06, 2016 at 16:34 Board Certified Radiologist. This report was verified electronically.
--- NOTE | 2016-04-06 18:14 | PD.CARD.PN ---
Assessment and Plan Assessment and Plan Plan for peripheral angio with CO2 Thursday NPO p Arjun Jamison MD Apr 06, 2016 18:14
[2016-04-06] MEDS: ATORVASTATIN 40 MG TAB PO SCH (21:40)
[2016-04-06] MEDS: SODIUM CHLORIDE 0.9% FLUSH 5 ML FLUSH IVF PRN (21:40)
[2016-04-07] MEDS: SODIUM CHLORIDE 0.9% FLUSH 5 ML FLUSH IVF PRN ×2 (00:12→21:30)
[2016-04-07] MEDS: CLINDAMYCIN INJ 900 MG in SODIUM CHLORIDE 0.9% INJ 100 ML IV SCH ×3 (00:12→16:26)
[2016-04-07 00:27] VITALS: BP 150/68; PULSE 64; RESP 18; TEMP 97.7; O2SAT 100
[2016-04-07 05:45] VITALS: BP 149/77; PULSE 64; RESP 18; TEMP 97.7; O2SAT 99
[2016-04-07] MEDS: LEVOTHYROXINE SODIUM 100 MCG TAB PO SCH (05:54)
[2016-04-07 06:05] LABS: AUTOMATED NEUTROPHIL # 2.4 TH/MM3 (1.8-7.7); BASOPHIL % 0.7 % (0.0-2.0); EOSINOPHIL # 0.3 TH/MM3 (0-0.4); EOSINOPHIL % 6.3 % (0.0-4.0); HEMATOCRIT 30.1 % (39.0-51.0); HEMO FLAGS DIFF FINAL; LYMPHOCYTE # 1.5 TH/MM3 (1.0-4.8); MEAN CELL VOLUME 83.8 FL (80.0-100.0); MEAN CORPUSCULAR HEMOGLOBIN 27.8 PG (27.0-34.0); MEAN CORPUSCULAR HGB CONC 33.2 % (32.0-36.0); MONO % 8.4 % (0.0-8.0); NEUT % 51.6 % (16.0-70.0); PLATELET COUNT 219 TH/MM3 (150-450); RED BLOOD COUNT 3.59 MIL/MM3 (4.50-5.90); RED CELL DISTRIBUTION WIDTH 14.6 % (11.6-17.2); WHITE BLOOD COUNT 4.7 TH/MM3 (4.0-11.0)
[2016-04-07 06:28] LABS: MAGNESIUM 2.3 MG/DL (1.5-2.5); POTASSIUM 4.3 MEQ/L (3.5-5.1)
[2016-04-07 08:00] VITALS: BP 128/70; PULSE 59; PULSE 74; RESP 20; TEMP 98; O2SAT 97
--- NOTE | 2016-04-07 08:27 | PD.CARD.PN ---
Subjective Subjective Remarks doing well this "I'm ready to go home" Objective Vital Signs / I&O Vital Signs Date Time Temp Pulse Resp B/P Pulse Ox O2 Delivery O2 Flow Rate FiO2 04/07/16 05:45 97.7 64 18 149/77 99 04/07/16 00:27 97.7 64 18 150/68 100 04/06/16 20:40 97.7 71 18 150/69 99 04/06/16 20:11 68 04/06/16 20:00 Room Air 04/06/16 16:00 98.0 74 18 122/66 99 04/06/16 12:00 97.3 75 20 110/71 100 04/06/16 11:45 Room Air 21 I/O 04/06/16 04/06/16 04/06/16 04/07/16 04/07/16 04/07/16 07:00 15:00 23:00 07:00 15:00 23:00 Intake Total 100 ml 720 ml 120 ml Balance 100 ml 720 ml 120 ml Intake Oral 100 ml 720 ml IV Total 120 ml # Voids 1 3 3 1 # Bowel Movements 0 0 0 Physical Exam CARDIOVASCULAR: Regular rate and rhythm 2/6 RESPIRATORY: Breath sounds equal bilaterally. No accessory muscle use. GASTROINTESTINAL: Abdomen soft, non-tender, nondistended. EXT: 1+ DP. 1+ PT foot warm. pretibial bandage in place Laboratory Laboratory Tests Test 04/07/16 05:18 White Blood Count 4.7 TH/MM3 Red Blood Count 3.59 MIL/MM3 Hemoglobin 10.0 GM/DL Hematocrit 30.1 % Mean Corpuscular Volume 83.8 FL Mean Corpuscular Hemoglobin 27.8 PG Mean Corpuscular Hemoglobin 33.2 % Concent Red Cell Distribution Width 14.6 % Platelet Count 219 TH/MM3 Mean Platelet Volume 8.3 FL Neutrophils (%) (Auto) 51.6 % Lymphocytes (%) (Auto) 33.0 % Monocytes (%) (Auto) 8.4 % Eosinophils (%) (Auto) 6.3 % Basophils (%) (Auto) 0.7 % Neutrophils # (Auto) 2.4 TH/MM3 Lymphocytes # (Auto) 1.5 TH/MM3 Monocytes # (Auto) 0.4 TH/MM3 Eosinophils # (Auto) 0.3 TH/MM3 Basophils # (Auto) 0.0 TH/MM3 CBC Comment DIFF FINAL Differential Comment Sodium Level 140 MEQ/L Potassium Level 4.3 MEQ/L Chloride Level 110 MEQ/L Carbon Dioxide Level 21.0 MEQ/L Anion Gap 9 MEQ/L Blood Urea Nitrogen 18 MG/DL Creatinine 0.96 MG/DL Estimat Glomerular Filtration 77 ML/MIN Rate Random Glucose 75 MG/DL Calcium Level 8.5 MG/DL Magnesium Level 2.3 MG/DL Imaging Last Impressions Chest X-Ray 04/06/16 0000 Signed Impressions: Service Date/Time: Wednesday, April 06, 2016 16:20 - CONCLUSION: No acute disease. Nick Newton MD Assessment and Plan Assessment and Plan Plan for peripheral angio with CO2 today at noon Cr improved. Likely prerenal secondary to diuretic. Arjun Campbell MD Apr 07, 2016 08:27
[2016-04-07] MEDS: CLOPIDOGREL 75 MG TAB PO SCH (09:12)
[2016-04-07] MEDS: ASPIRIN 325 MG TAB PO SCH (09:12)
[2016-04-07] MEDS: CARVEDILOL 3.125 MG TAB PO SCH ×2 (09:12→21:30)
[2016-04-07] MEDS: predniSONE 1 MG TAB PO SCH (09:15)
[2016-04-07 12:00] VITALS: BP 144/69; PULSE 64; RESP 20; TEMP 98; O2SAT 96
--- NOTE | 2016-04-07 12:22 | HHI.PR ---
Subjective Remarks doing ok. Objective Vitals heart reg lung cta abd s/nt ext right avery deep wound/tunnels unpacked. no purelent drainage. Vital Signs Date Time Temp Pulse Resp B/P Pulse Ox O2 Delivery O2 Flow Rate FiO2 04/07/16 08:30 Room Air Nasal Cannula 04/07/16 08:00 98.0 59 20 128/70 97 04/07/16 05:45 97.7 64 18 149/77 99 04/07/16 00:27 97.7 64 18 150/68 100 04/06/16 20:40 97.7 71 18 150/69 99 04/06/16 20:11 68 04/06/16 20:00 Room Air 04/06/16 16:00 98.0 74 18 122/66 99 04/06/16 04/06/16 04/07/16 15:00 23:00 07:00 Intake Total 720 ml 120 ml Balance 720 ml 120 ml Intake Oral 720 ml IV Total 120 ml # Voids 3 3 1 # Bowel Movements 0 0 Result Diagram: 04/07/16 0518 04/07/16 0518 A/P Problem List: (1) Open wound of right lower extremity Status: Chronic Plan: - Pt admitted to [facility] [place] [place] on 04/04/16 due to a nonhealing RLE wound which occurred a few weeks ago when his dog's chain got wrapped around his leg causing a hematoma in the right pretibial region. - Pt was seen at [facility] at [facility] and had the hematoma opened and drained. Since that time it has remained open and had some clots and some erythema around it. - He was seen by Dr. Campbell (04/03/16) with concerns over his non-healing wound and consideration for any underlying peripheral arterial disease. - He saw Dr. Joiner (04/04/16) who was anticipating debridement and possible skin grafting. - Pt was sent to the ED to obtain a CT with runoff of the right lower extremity to document if there is any underlying PAD in anticipation of upcoming surgery. - In the ER his renal function had acutely worsened with Cr 2.14. Due to the acute renal insufficiency pt will be unable to have the CTA with runoff of the right lower extremity as anticipated. - Pt underwent RLE wound debridement and evacuation of hematoma (04/05/16) performed by Dr. Joiner - wound culture (04/05/16) --> MRSA with sens to bactrim. stop clinda -Dr Campbell to perform evaluation co2 guided angiogram today of rle. -will await final wound care instruction and d/c planning with dr Joiner. (2) Hematoma of right lower extremity Status: Chronic Plan: - See above (3) Acute renal insufficiency Status: Acute Plan: - improved from admission - continue to hold lasix and lisinopril for now (4) Ischemic cardiomyopathy Status: Chronic Plan: - Pt with EF 20-25% - Cont. BB (5) Hypothyroidism Status: Chronic Plan: - Home meds continued (6) Rheumatoid arthritis Status: Chronic Plan: - resume outpt prednisone 4mg PO daily Problem Qualifiers (1) Open wound of right lower extremity: Qualified Code: S81.801D - Open wound of right lower extremity, subsequent encounter (2) Rheumatoid arthritis: Alvarado Villagomez MD Apr 07, 2016 12:22
[2016-04-07] MEDS ORDERED: HEPARIN-NS/PF INJ 500 ML ONE (13:02)
[2016-04-07] MEDS ORDERED: MIDAZOLAM HCL 2 MG/2 ML VIAL ONE ×2 (13:03→13:18)
[2016-04-07] MEDS ORDERED: HEPARIN SODIUM - IV 10,000 UNITS/10 ML VIAL ONE (13:03)
[2016-04-07] MEDS ORDERED: NITROGLYCERIN INJ 5 ML ONE (13:03)
[2016-04-07] MEDS ORDERED: LABETALOL HCL 100 MG/20 ML VIAL IVP PRN (14:00)
[2016-04-07] MEDS ORDERED: NITROPRUSSIDE INJ 50 MG in DEXTROSE 5% IN WATER INJ 248 ML IV SCH ×2 (14:00)
[2016-04-07] MEDS ORDERED: IOHEXOL 350 MG/ML 50 ML BTL (for EPS) OTHER ONE (14:00)
[2016-04-07] MEDS ORDERED: SODIUM CHLOR 0.9% 250 ML INJ 250 ML IV PRN (14:00)
[2016-04-07] MEDS ORDERED: MISC INFORMATION XX PRN (14:00)
[2016-04-07] MEDS ORDERED: METOCLOPRAMIDE HCL 10 MG/2 ML VIAL IV PRN (14:00)
[2016-04-07] MEDS ORDERED: ENALAPRILAT 1.25 MG/ML VIAL IV PRN (14:00)
[2016-04-07] MEDS ORDERED: POTASSIUM CHLORIDE 20 MEQ CONTROLLED RELEASE TAB PO PRN (14:00)
[2016-04-07] MEDS ORDERED: BACITRACIN OINT 0.9 GM PKT TOP ONE (14:00)
[2016-04-07] MEDS ORDERED: cloNIDine HCL 0.1 MG TAB PO PRN (14:00)
[2016-04-07] MEDS ORDERED: ATROPINE SULFATE 1 MG/ML VIAL IV PRN (14:00)
[2016-04-07] MEDS ORDERED: MORPHINE SULFATE 4 MG/ML INJ IV PUSH PRN (14:00)
--- NOTE | 2016-04-07 15:19 | MA ---
cc: TERESA COLEMAN MD DATE: 04/07/2016 PROCEDURE PERFORMED 1. Fluoroscopy with interpretation. 2. Descending aortography. 3. Right lower extremity peripheral angiography with first, second, third order visualization interpretation. TOTAL CONTRAST Total amount of contrast administered 20 cc. CO2 angiography was utilized for the majority of the case to minimize contrast exposure. METHOD The risks, benefits and alternatives were discussed with the patient. The patient understood and consented to the procedure. The patient was brought into the catheterization lab and placed on the catheterization table. The left groin was prepped and draped in sterile fashion. The left groin was anesthetized with 2% lidocaine. The left common femoral artery was cannulated. A 5-American, 11 cm sheath was placed without difficulty. DESCENDING AORTOGRAPHY Descending aortography was performed in an anterior-posterior view using CO2 contrast injection with good opacification. Descending aortography revealed mild infrarenal descending aortic atherosclerosis. The right renal artery appeared to be patent. The left renal artery was not visualized. PERIPHERAL ANGIOGRAPHY Right common internal and external iliac arteries widely patent. Right common femoral profunda and superficial femoral arteries widely patent. Right popliteal artery widely patent. Posterior tibial artery widely patent. Peroneal smaller caliber size but patent. Anterior tibial smaller caliber size with rather diffuse disease, about 50% stenosis in the mid to distal segment, does not appear to be hemodynamically significant. CONCLUSIONS 1. Mild to moderate small vessel distal disease in the right lower extremity. 2. Mild infrarenal descending aortic atherosclerosis. PLAN There does not appear to be any hemodynamically significant PAD. Will continue with aspirin, Plavix and statin therapy. Suspect his non-healing ulcer is secondary to infection and not arterial insufficiency. The patient is okay to be discharged and follow-up as an outpatient. MD DANIA Conteh/NOEL /2:01 PM /3:09 PM
[2016-04-07 16:00] VITALS: BP 179/76; PULSE 68; RESP 20; TEMP 97.7; O2SAT 99
[2016-04-07 20:00] VITALS: BP 135/68; PULSE 73; PULSE 92; RESP 18; TEMP 97.6; O2SAT 96
--- NOTE | 2016-04-07 20:27 | PD.PLAS.PN ---
Subjective Remarks Patient doing well. Had cardiac and peripheral work up - right leg has adequate arterial supply. Wound has been clean and no bleeding. Dressing on with betadine at this time. Culture - MRSA - sensitive to sulfa. Resistant to cephalo / PCN group. Intermediate to Clinda. Will start oral sulfa. OK to dc from plastic - will need home wound care nursing. OK to shower and wash the leg wound with soap and water before getting new dressing on it. FU in clinic [facility] Thursday. Vital Signs Date Time Temp Pulse Resp B/P Pulse Ox O2 Delivery O2 Flow Rate FiO2 04/07/16 16:00 97.7 68 20 179/76 99 04/07/16 12:00 98.0 64 20 144/69 96 04/07/16 08:30 Room Air Nasal Cannula 04/07/16 08:00 74 04/07/16 08:00 98.0 59 20 128/70 97 04/07/16 05:45 97.7 64 18 149/77 99 04/07/16 00:27 97.7 64 18 150/68 100 04/06/16 20:40 97.7 71 18 150/69 99 I/O 04/06/16 04/06/16 04/06/16 04/07/16 04/07/16 04/07/16 07:00 15:00 23:00 07:00 15:00 23:00 Intake Total 100 ml 720 ml 120 ml 104 ml Balance 100 ml 720 ml 120 ml 104 ml Intake Oral 100 ml 720 ml 0 ml IV Total 120 ml 104 ml # Voids 1 3 3 1 3 # Bowel Movements 0 0 0 0 Laboratory Tests Test 04/07/16 05:18 White Blood Count 4.7 Red Blood Count 3.59 Hemoglobin 10.0 Hematocrit 30.1 Mean Corpuscular Volume 83.8 Mean Corpuscular Hemoglobin 27.8 Mean Corpuscular Hemoglobin 33.2 Concent Red Cell Distribution Width 14.6 Platelet Count 219 Mean Platelet Volume 8.3 Neutrophils (%) (Auto) 51.6 Lymphocytes (%) (Auto) 33.0 Monocytes (%) (Auto) 8.4 Eosinophils (%) (Auto) 6.3 Basophils (%) (Auto) 0.7 Neutrophils # (Auto) 2.4 Lymphocytes # (Auto) 1.5 Monocytes # (Auto) 0.4 Eosinophils # (Auto) 0.3 Basophils # (Auto) 0.0 CBC Comment DIFF FINAL Differential Comment Sodium Level 140 Potassium Level 4.3 Chloride Level 110 Carbon Dioxide Level 21.0 Anion Gap 9 Blood Urea Nitrogen 18 Creatinine 0.96 Estimat Glomerular Filtration 77 Rate Random Glucose 75 Calcium Level 8.5 Magnesium Level 2.3 Date/Time Procedure Status Source Growth 04/04/16 17:45 Gram Stain - Final Complete Wound Leg 04/04/16 17:45 Wound Culture - Final Complete S. Aureus Mrsa 04/04/16 17:45 Fungal Smear - Final Resulted Wound Leg NO FUNGAL ELEMENTS SEEN. 04/04/16 17:45 Fungal Culture Resulted Wound Leg Pending 04/04/16 17:45 Acid Fast Stain - Final Resulted Wound Leg NO ACID FAST BACILLI SEEN 04/04/16 17:45 Mycobacterial Culture Resulted Wound Leg Pending Result Diagram: 04/07/16 0518 04/07/16 0518 Chad Joiner MD Apr 07, 2016 20:27
[2016-04-07] MEDS: ATORVASTATIN 40 MG TAB PO SCH (21:30)
[2016-04-07] MEDS: SULFAMETHOXAZOLE-TRIMETHOPRIM DS 800-160 MG TAB PO SCH (21:39)
[2016-04-08] VITALS: BP 129/69; PULSE 65; RESP 18; TEMP 97.6; O2SAT 98
[2016-04-08 04:00] VITALS: BP 141/73; PULSE 71; RESP 17; TEMP 97.8; O2SAT 98
[2016-04-08 05:32] VITALS: O2SAT 98
[2016-04-08] MEDS: LEVOTHYROXINE SODIUM 100 MCG TAB PO SCH (06:42)
[2016-04-08] MEDS: predniSONE 1 MG TAB PO SCH (08:07)
[2016-04-08] MEDS: SULFAMETHOXAZOLE-TRIMETHOPRIM DS 800-160 MG TAB PO SCH (08:07)
[2016-04-08] MEDS: CARVEDILOL 3.125 MG TAB PO SCH (08:08)
[2016-04-08] MEDS: ASPIRIN 325 MG TAB PO SCH (08:08)
[2016-04-08] MEDS: CLOPIDOGREL 75 MG TAB PO SCH (08:08)
[2016-04-08 08:10] VITALS: BP 149/74; PULSE 62; RESP 20; TEMP 96.8; O2SAT 98
--- NOTE | 2016-04-08 10:20 | HHI.PR ---
Subjective Remarks want to go home Objective Vitals heart reg lung cta abd /snt ext right avery packed/wrapped. Vital Signs Date Time Temp Pulse Resp B/P Pulse Ox O2 Delivery O2 Flow Rate FiO2 04/08/16 08:10 96.8 62 20 149/74 98 04/08/16 08:00 Room Air Nasal Cannula 04/08/16 05:32 98 04/08/16 04:00 97.8 71 17 141/73 98 04/08/16 00:00 97.6 65 18 129/69 98 04/07/16 20:15 Room Air 04/07/16 20:00 97.6 73 18 135/68 96 04/07/16 20:00 92 04/07/16 16:00 97.7 68 20 179/76 99 04/07/16 12:00 98.0 64 20 144/69 96 04/07/16 04/07/16 04/08/16 15:00 23:00 07:00 Intake Total 104 ml 240 ml 100 ml Balance 104 ml 240 ml 100 ml Intake Oral 0 ml 240 ml 100 ml IV Total 104 ml # Voids 3 2 1 # Bowel Movements 0 0 0 Result Diagram: 04/07/16 0518 04/07/16 0518 A/P Problem List: (1) Open wound of right lower extremity Status: Chronic Plan: - Pt admitted to [facility] on 04/04/16 due to a nonhealing RLE wound which occurred a few weeks ago when his dog's chain got wrapped around his leg causing a hematoma in the right pretibial region. - Pt was seen at [facility] at [facility] and had the hematoma opened and drained. Since that time it has remained open and had some clots and some erythema around it. - He was seen by Dr. Campbell (04/03/16) with concerns over his non-healing wound and consideration for any underlying peripheral arterial disease. - He saw Dr. Joiner (04/04/16) who was anticipating debridement and possible skin grafting. - Pt was sent to the ED to obtain a CT with runoff of the right lower extremity to document if there is any underlying PAD in anticipation of upcoming surgery. - In the ER his renal function had acutely worsened with Cr 2.14. Due to the acute renal insufficiency pt will be unable to have the CTA with runoff of the right lower extremity as anticipated. - Pt underwent RLE wound debridement and evacuation of hematoma (04/05/16) performed by Dr. Joiner - wound culture (04/05/16) --> MRSA with sens to bactrim. stop clinda d/c home today with wound care and the [facility]. abx. f/u Thursday. (2) Hematoma of right lower extremity Status: Chronic Plan: - See above (3) Acute renal insufficiency Status: Acute Plan: - improved from admission - continue to hold lasix and lisinopril for now (4) Ischemic cardiomyopathy Status: Chronic Plan: - Pt with EF 20-25% - Cont. BB (5) Hypothyroidism Status: Chronic Plan: - Home meds continued (6) Rheumatoid arthritis Status: Chronic Plan: - resume outpt prednisone 4mg PO daily Problem Qualifiers (1) Open wound of right lower extremity: Qualified Code: S81.801D - Open wound of right lower extremity, subsequent encounter (2) Rheumatoid arthritis: Alvarado Villagomez MD Apr 08, 2016 10:20
[2016-04-08] MEDS ORDERED: BACT400T PO (10:22)
--- NOTE | 2016-04-08 10:22 | HHI.DCPOC ---
Discharge Care Plan Diagnosis: (1) Open wound of right lower extremity Goals to Promote Your Health * To prevent worsening of your condition and complications * To maintain your health at the optimal level Directions to Meet Your Goals Take your medications as prescribed Follow your dietary instruction Follow activity as directed Keep your appointments as scheduled Take your immunizations and boosters as scheduled If your symptoms worsen call your PCP, if no PCP go to Urgent Care Center or Emergency Room Smoking is Dangerous to Your Health. Avoid second hand smoke Call the 24-hour hour crisis hotline for domestic abuse at Alvarado Villagomez MD Apr 08, 2016 10:22
--- NOTE | 2016-04-08 10:27 | HHI.FF ---
Face to Face Verification Diagnosis: (1) Open wound of right lower extremity Home Health Nursing Order: Medical education Signs/symptoms of disease process Wound care and dressing changes Nursing assessment with vital signs Instructions: wound care right lower extremity. change wet to dry dressing to open wound and cover ok to shower and use soap and water before each dressing change. change dressing daily. f/u dr Joiner Thursday. I have seen patient Papito Jacinto on 04/08/16. My clinical findings support the need for the requested home health care services because: Ltd mobility - disease progression I certify that my clinical findings support that this patient is homebound because: Unsafe to leave home unassisted Alvarado Villagomez MD Apr 08, 2016 10:27
[2016-04-09] MEDS ORDERED: ASPIRIN EC 81 MG TABEC PO SCH (09:00)
--- NOTE | 2016-04-28 09:05 | HHI.DS ---
Discharge Summary Admission Date Apr 04, 2016 at 13:40 Discharge Date: Apr 08, 2016 Admitting Diagnosis Nonhealing wound right leg/Renal Failure (1) Open wound of right lower extremity Diagnosis: Principal (2) Hematoma of right lower extremity Diagnosis: Principal (3) Acute renal insufficiency Diagnosis: Principal (4) Ischemic cardiomyopathy Diagnosis: Secondary (5) Hypothyroidism Diagnosis: Secondary (6) Rheumatoid arthritis Diagnosis: Secondary Brief History Mr. Jacinto is a 75 y/o gentleman with probable ischemic cardiomyopathy with EF 20-25%, HTN, and CAD s/p PCI with HAKEEM to the left anterior descending coronary artery in 09/2015. Pt was sent to the ER at [facility] on 04/04/16 due to a nonhealing RLE wound. Pt reports that a few weeks ago his dog's chain got wrapped around his leg causing a hematoma in the right pretibial region. Pt was seen at [facility] at [facility] and had the hematoma opened and drained. Since that time it has remained open and had some clots and some erythema around it. He was seen by Dr. Campbell yesterday with concerns over his non-healing wound and consideration for any underlying peripheral arterial disease. He saw Dr. Joiner today who was anticipating debridement and possible skin grafting. After discussion between Dr. Campbell and the pt/family they elected to go to the ED to obtain a CT with runoff of the right lower extremity rather than ultrasound to document if there is any underlying PAD in anticipation of upcoming surgery. In the ER his renal function had acutely worsened with Cr 2.14. Due to the acute renal insufficiency pt will be unable to have the CTA with runoff of the right lower extremity as anticipated. The pt is being admitted for further workup for potential PVD, evaluation of this acute renal insufficiency as well as consultation with Dr. Joiner for possible surgical debridement and/or skin grafting. Hospital Course - Pt admitted to [facility] on 04/04/16 due to a nonhealing RLE wound which occurred a few weeks ago when his dog's chain got wrapped around his leg causing a hematoma in the right pretibial region. - Pt was seen at [facility] at [facility] and had the hematoma opened and drained. Since that time it has remained open and had some clots and some erythema around it. - He was seen by Dr. Campbell (04/03/16) with concerns over his non-healing wound and consideration for any underlying peripheral arterial disease. - He saw Dr. Joiner (04/04/16) who was anticipating debridement and possible skin grafting. - Pt was sent to the ED to obtain a CT with runoff of the right lower extremity to document if there is any underlying PAD in anticipation of upcoming surgery. - In the ER his renal function had acutely worsened with Cr 2.14. Due to the acute renal insufficiency pt will be unable to have the CTA with runoff of the right lower extremity as anticipated. - Pt underwent RLE wound debridement and evacuation of hematoma (04/05/16) performed by Dr. Joiner - wound culture (04/05/16) --> MRSA with sens to bactrim. stop clinda d/c home today with wound care and [facility]. abx. f/u Thursday. Pt Condition on Discharge: Stable Discharge Disposition: Disch w/ Home Health Serv Discharge Instructions DIET: Follow Instructions for: Heart Healthy Diet Activities you can perform: Regular-No Restrictions Follow up Referrals: PCP Follow-up - [address] mcbride Plastic Surgery - 04/11/[address] joiner Continued Medications: Aspirin (Aspirin) 325 Mg Tab 325 MG PO DAILY #30 Ref 0 TAB Atorvastatin (Atorvastatin) 40 Mg Tab 40 MG PO HS Cholesterol Management #30 Ref 0 TAB Carvedilol (Coreg) 3.125 Mg Tab 3.125 MG PO BID #60 Ref 0 TAB Clopidogrel (Plavix) 75 Mg Tab 75 MG PO DAILY Blood Clot Prevention #30 Ref 0 TAB Etanercept PF Inj (Enbrel PF Inj) 50 mg/ml Syr 25 MG SQ Q7D #4 Ref 0 SYRINGE Furosemide (Lasix) 20 Mg Tab 20 MG PO BID #60 Ref 0 TAB Levothyroxine (Levothyroxine) 100 Mcg Tab 100 MCG PO DAILY Thyroid #30 Ref 0 TAB Lisinopril (Lisinopril) 10 Mg Tab 10 MG PO DAILY #30 Ref 0 TAB Multiple Vitamin (Multiple Vitamin) 1 Tab 1 TAB PO DAILY Nutritional Supplement Ref 0 TAB Potassium Chloride ER (K-Tab) 20 Meq Tab 20 MEQ PO BID Electrolyte Replacement #60 Ref 0 TAB Sulfamethoxazole-Trimethoprim (Bactrim) 400-80 Mg Tab 1 TAB PO BID Infection Days 9 Ref 0 TAB (This prescription has been renewed) Alvarado Villagomez MD Apr 28, 2016 09:05
== END 2016-04-08 13:29 | disposition home health service (06) | DRG 571 ==
LOC: NEPC 10:55 → UNDOADMIN 13:40 → NEDH 13:40 → NEDA 13:40 → NEDH 19:30 → N04B 19:30 → HCIS 04-07 13:46 → N04B 04-07 15:53
PROVIDERS: ADMIT Hospitalist; ATTEND Hospitalist
PROC: 0HDKXZZ Extraction of Right Lower Leg Skin, External Approach (ICD-10-PCS; 2016-04-04)
PROC: 0HBKXZZ Excision of Right Lower Leg Skin, External Approach (ICD-10-PCS; principal; 2016-04-04 17:31)
PROC: B4101ZZ Fluoroscopy of Abdominal Aorta using Low Osmolar Contrast (ICD-10-PCS; 2016-04-07)
PROC: B41F1ZZ Fluoroscopy of Right Lower Extremity Arteries using Low Osmolar Contrast (ICD-10-PCS; 2016-04-07)
DX: S81.801A Unspecified open wound, right lower leg, initial encounter (principal); I96 Gangrene, not elsewhere classified; N17.9 Acute kidney failure, unspecified; L03.115 Cellulitis of right lower limb; I25.5 Ischemic cardiomyopathy; S80.11XD Contusion of right lower leg, subsequent encounter; M06.9 Rheumatoid arthritis, unspecified; I25.10 Atherosclerotic heart disease of native coronary artery without angina pectoris; B95.62 Methicillin resistant Staphylococcus aureus infection as the cause of diseases classified elsewhere; I70.0 Atherosclerosis of aorta; E03.9 Hypothyroidism, unspecified; E78.5 Hyperlipidemia, unspecified; I10 Essential (primary) hypertension; Z95.5 Presence of coronary angioplasty implant and graft; Z85.828 Personal history of other malignant neoplasm of skin; Z79.01 Long term (current) use of anticoagulants; W26.8XXD Contact with other sharp object(s), not elsewhere classified, subsequent encounter
CPT/HCPCS: 36245; 71010; 75625; 75710; 80048; 80053; 83735; 85025; 85610; 85730; 86403; 87015; 87070; 87102; 87116; 87186; 87205; 87206; 93005; 93306; 96365; 96368; C1760; C1769; C1893; G0269; J1644; J2250; J2543; J3010; J3370; J7050; J7512; Q9967

== ENCOUNTER 2016-04-19 10:11 | Emergency (ER) | payer OTHER ==
[~2016-04-19] VITALS: Ht 180.3 cm; Wt 75.0 kg
[~2016-04-19 10:11] MED LIST changes: +BACT400T PO; -PROPOFOL 200 MG/20 ML AMP IV ONE
[2016-04-19 10:12] VITALS: BP 145/76; PULSE 82; RESP 20; TEMP 97.6; O2SAT 97
[2016-04-19 10:27] VITALS: BP 144/76; PULSE 76; RESP 16; TEMP 97.9; O2SAT 98
--- NOTE | 2016-04-19 11:34 | PD ---
HPI Chief Complaint: Wound/Suture/Staple Re-Check Time Seen by Provider: 10:40 Travel History International Travel<30 days: No Contact w/Intl Traveler<30days: No Traveled to known affect area: No History of Present Illness HPI This 75-year-old man, history of multiple medical problems, had a large hematoma on his leg since February, ultimately required debridement with plastic surgery. His thought that it was older more red and warm today. He feels like he looks fine and has been feeling fine. He follows up with his surgeon weekly. No fevers or chills. No other complaints. 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 Reported Meds & Prescriptions Reported Meds & Active Scripts Active Bactrim (Sulfamethoxazole-Trimethoprim) 400-80 Mg Tab 1 Tab PO BID 9 Days Reported K-Tab (Potassium Chloride) 20 Meq Tab 20 Meq PO BID Multiple Vitamin 1 Tab 1 Tab PO DAILY Lisinopril 10 Mg Tab 10 Mg PO DAILY Levothyroxine (Levothyroxine Sodium) 100 Mcg Tab 100 Mcg PO DAILY Lasix (Furosemide) 20 Mg Tab 20 Mg PO BID Enbrel PF Inj (Etanercept) 50 mg/ml Syr 25 Mg SQ Q7D Plavix (Clopidogrel Bisulfate) 75 Mg Tab 75 Mg PO DAILY Coreg (Carvedilol) 3.125 Mg Tab 3.125 Mg PO BID Atorvastatin (Atorvastatin Calcium) 40 Mg Tab 40 Mg PO HS Aspirin 325 Mg Tab 325 Mg PO DAILY Review of Systems Except as stated in HPI: all other systems reviewed are Neg Physical Exam Narrative GENERAL: Well-appearing 75 old man, no acute distress. SKIN: Warm and dry. CARDIOVASCULAR: Warm and well perfused. RESPIRATORY: Normal rate and effort. MUSCULOSKELETAL: Focus examination the right lower extremity reveals large chronic wound, clean wound base, no surrounding erythema redness. No warmth. Data Data Last Documented VS Vital Signs Date Time Temp Pulse Resp B/P Pulse Ox O2 Delivery O2 Flow Rate FiO2 04/19/16 10:27 97.9 76 16 144/76 98 Room Air Orders Complete Blood Count With Diff (04/19/16 10:24) Comprehensive Metabolic Panel (04/19/16 10:24) Westergren Sedimentation Rate (04/19/16 10:24) C-Reactive Protein (Crp) (04/19/16 10:24) Iv Access Insert/Monitor (04/19/16 10:24) [facility] Medical Decision Making Medical Screen Exam Complete: Yes Emergency Medical Condition: Yes Differential Diagnosis Chronic wound, infection, other Narrative Course Medical decision making the progress 75 old man with a chronic healing wound to the right lower extremity. Wound appears to be healing well. Recommend continued outpatient follow-up. Diagnosis Primary Impression: Open wound of right lower extremity Qualified Code: S81.801A - Open wound of right lower extremity, initial encounter Additional Instructions: Follow-up with your plastic surgeon as planned. Return to the emergency department for any new or worsening symptoms. Med/Other Pt SpecificInfo: No Change to Meds Disposition: 01 DISCHARGE HOME Condition: Stable Arjun Duque MD Apr 19, 2016 11:34
== END 2016-04-19 11:49 | disposition home or self-care (01) ==
LOC: NEPE 10:11
DX: S81.801D Unspecified open wound, right lower leg, subsequent encounter (principal); I10 Essential (primary) hypertension; E78.00 Pure hypercholesterolemia, unspecified; I25.5 Ischemic cardiomyopathy; E03.9 Hypothyroidism, unspecified; X58.XXXD Exposure to other specified factors, subsequent encounter
CPT/HCPCS: 99283

== ENCOUNTER → 2016-11-19 | Day surgery (SDC) | payer OTHER ==
[~2016-11-19] MED LIST changes: +LACTATED RINGER'S 1000 ML INJ 1,000 ML ONE; +PROPOFOL 500 MG/50 ML BTL IV ONE
== END | disposition home or self-care (01) ==
LOC: ESDC 07:15
PROVIDERS: ATTEND Internal Medicine Gastroenterology
DX: D50.9 Iron deficiency anemia, unspecified (principal); D12.4 Benign neoplasm of descending colon; D12.5 Benign neoplasm of sigmoid colon; K64.4 Residual hemorrhoidal skin tags; K64.8 Other hemorrhoids; K20.9 Esophagitis, unspecified; K29.70 Gastritis, unspecified, without bleeding
CPT/HCPCS: 00740; 00810; 43235; 45378; J7120

== ENCOUNTER 2017-03-12 05:10 | Inpatient (IN) | payer OTHER, MEDICARE ==
[~2017-03-12] VITALS: Ht 182.9 cm; Wt 75.0 kg
[~2017-03-12 05:10] MED LIST changes: +ASPI-183 PO; -ASPI325T PO; -BACT400T PO; -CARV3.125 PO; -FURO1TAB62 PO; +FURO40TA PO; -LACTATED RINGER'S 1000 ML INJ 1,000 ML ONE; -LEVO100T5 PO; +LEVO25TA4 PO; +METH8TAB3 PO; -MULTTAB67 PO; -PROPOFOL 500 MG/50 ML BTL IV ONE
[2017-03-12] MEDS ORDERED: LACTATED RINGER'S 1000 ML IV PRN (05:30)
[2017-03-12] MEDS ORDERED: POVIDONE IODINE 5% (ANTISEPSIS KIT) 4 APPLICATIONS EACH NARE PRN (05:30)
[2017-03-12] MEDS ORDERED: SODIUM CHLORID 0.9% 500 ML IV PRN (05:30)
[2017-03-12] MEDS ORDERED: CHLORHEXIDINE GLUCONATE 2 % 1 PACK (2 CLOTHS) TOPICAL PRN (05:30)
[2017-03-12] MEDS ORDERED: METOPROLOL TARTRATE 25 MG TAB PO PRN (05:30)
[2017-03-12] MEDS ORDERED: CHLORHEXIDINE GLUCONATE 4% SOLN 120 ML BTL TOPICAL SCH (05:45)
[2017-03-12] MEDS ORDERED: VANCOMYCIN 1000 MG/NS 250 ML (for <70 kg) IV SCH ×2 (06:00)
[2017-03-12] MEDS ORDERED: ceFAZolin 2 GM PREMIX 50 ML IV SCH (06:00)
[2017-03-12] MEDS ORDERED: DEXAMETHASONE SOD PHOS 20 MG/5 ML VIAL IV SCH (06:00)
[2017-03-12] MEDS ORDERED: TETRACAINE PF 1% INJ 2 ML AMP ONE (06:40)
[2017-03-12] MEDS ORDERED: VANCOMYCIN HCL 1000 MG VIAL ONE ×2 (06:43→08:04)
[2017-03-12] MEDS ORDERED: EXPAREL PERI-ARTICULAR INJECTION (TOTAL VOL. 60 ML) P-ARTICULR SCH ×2 (07:00)
[2017-03-12] MEDS ORDERED: HEPARIN SODIUM - SQ 10,000 UNITS/ML VIAL ONE (07:03)
[2017-03-12] MEDS ORDERED: DEXAMETHASONE SOD PHOS 20 MG/5 ML VIAL ONE (07:45)
[2017-03-12] MEDS ORDERED: PROPOFOL 500 MG/50 ML INJ 100 ML ONE (07:46)
[2017-03-12] MEDS ORDERED: HYDR-3583 PO (07:49)
[2017-03-12] MEDS ORDERED: XARE10TA PO (07:49)
[2017-03-12] MEDS ORDERED: WALKER/ADULT/FO1 MIS (07:49)
[2017-03-12] MEDS ORDERED: WHEEMIS3 (07:49)
[2017-03-12] MEDS ORDERED: ASPI-183 PO (07:49)
[2017-03-12] MEDS: SODIUM CHLORIDE 0.9% IV SCH ×2 (08:49→08:53)
[2017-03-12] MEDS: TRANEXAMIC ACID IV SCH ×2 (08:49→08:53)
[2017-03-12] MEDS ORDERED: NALOXONE HCL 0.4 MG/ML AMP IV PUSH PRN (09:00)
[2017-03-12] MEDS ORDERED: ONDANSETRON HCL 4 MG/2 ML VIAL IVP PRN (09:00)
[2017-03-12] MEDS ORDERED: ACETAMINOPHEN/HYDROcodone 325 MG/5 MG TAB PO PRN (09:00)
[2017-03-12] MEDS ORDERED: diphenhydrAMINE HCL 25 MG CAP PO PRN (09:00)
[2017-03-12] MEDS ORDERED: MORPHINE SULFATE 4 MG/ML INJ IV PUSH PRN (09:00)
[2017-03-12] MEDS ORDERED: Post-op Orders (for Pharmacy) XX ONE (09:00)
[2017-03-12] MEDS ORDERED: ACETAMINOPHEN/HYDROcodone 325 MG/7.5 MG TAB PO PRN (09:00)
--- NOTE | 2017-03-12 09:00 | PD.OP ---
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 Surgeon: Fransisco Castillo Welder Apprentice Arc(s): REFUGIO Louise PA-C The surgical procedure was assisted by my physician freezer assistant. My P.A. presence was necessary throughout this case for the manipulation and positioning of the surgical extremity. My P.A. was assisting me throughout the duration of this procedure. The skill set of a physician freezer assistant was medically necessary to complete this procedure. During the surgical case the surgical appliances salesperson was working at the back table and the physician freezer assistant was directly assisting me. Operation and Findings: Weight bear as tolerated. DRAINS: 7-mm KVNG drain. IMPLANTS USED Rosales and nephew polyethylene 54/36 liner with 20 lip, 36+8 ceramic head DETAILS OF PROCEDURE: This patient has a long history of hip pain. Has a history of bilateral total hip arthroplasties. He has severe ostial lysis developing and severe pain of his right hip. The patient failed conservative treatment with pain medications, anti-inflammatories, physical therapy, assistive devices including a cane, as well as therapeutic injection of the hip. The patient wished to proceed with surgery and informed consent was obtained. Operative site was marked. Patient was brought to OR and placed on OR table. IV sedation and general anesthesia was administered by anesthesiologist. Patient was positioned lateral on the operating room table and was given IV antibiotics. Time-out procedure was performed. The operative hip and leg were prepped with alcohol followed by Hibiclens and draped in the usual sterile fashion. Clean Air Suite was used for this procedure. Time out procedure was performed. The procedure began with a 8-inch incision over the posterolateral thigh. Subcutaneous tissue was dissected with Bovie. The fascia of the iliotibial band was incised. Gluteus muscle was split in line with fibers. Charnley retractor was placed. Piriformis and external rotator muscles were identified and then released from the posterior femur. The hip capsule was incised and sutures were placed to help retract the capsule. At this point the prosthesis was identified. There was a large amount of inflammatory tissue present. There was significant ostial lysis of the proximal femur. Soft tissue and bone were sent for cultures as well as to pathology for frozen section. Pathology report had no signs of acute inflammation. Gram stain was negative for organisms. At this point the femoral head was removed from the stem. The stem was now evaluated. There was a large amount of ostial lysis around the proximal end of the stem. The stem was tapped with a mallet. There is no evidence of motion or loosening. Next attention was turned to the acetabulum. The polyethylene liner was removed. The cup was evaluated. The cup appeared to be well fixed with no motion present. At this point attention was turned towards debridement. A synovectomy was performed to remove a large amount of synovial inflammatory tissue. Curettes and rongeurs were used to debride the proximal femur. Soft tissue and bone were thoroughly irrigated with pulsatile lavage. At this point a trial liner was placed into the cup. A 36+8 femoral head was placed. Hip was reduced. Patient had good range of motion with excellent stability. Trial components were removed. A 54/36 liner was opened and impacted into the acetabular shell. Next attention was turned towards bone grafting the proximal femur. 10 cc of demineralized bone matrix was packed around the proximal end of the stem. An additional 15 cc of cancellus bone chips were packed into the defects of the proximal femur. At this point a 36+8 femoral head was placed onto the stem. Hip was again reduced and found to have good range of motion with good stability. The wound was thoroughly irrigated. Hip capsule, external rotators, and iliotibial band was closed with #1 Vicryl. A drain was placed deep into the wound. Subcutaneous tissue was closed with 3-0 Vicryl and the skin was closed with donald and Dermabond skin closure. The capsule layers were injected with a mixture of saline and bupivicaine. Dressings were applied. The patient was transferred to Recovery Room in stable condition. Fransisco Castillo MD Mar 12, 2017 09:00
[2017-03-12] MEDS ORDERED: DO NOT ADM ANY ANTICOAGULANT DRUGS PRN (09:13)
[2017-03-12] MEDS: LACTATED RINGER'S 1000 ML IV SCH ×2 (09:40→21:56)
[2017-03-12] MEDS: LEVOTHYROXINE SODIUM 25 MCG TAB PO SCH (10:00)
--- NOTE | 2017-03-12 11:18 | RADRPT ---
EXAM DATE/TIME: 03/12/2017 09:29 [place] COMPARISON: No previous studies available for comparison. INDICATIONS : Post right hip arthroplasty MEDICAL HISTORY : Hypothyroidism. Congestive heart failure. Hypercholesterolemia. Hypertension. Arthritis. Rheumatoid a rthritis. Pleural effusions. GERD. Nephrolithiasis. Skin cancer. Anemia SURGICAL HISTORY : Coronary artery stent. Craniotomy. Bilateral knee and hip surgery. Cystoscopy with internal urethroto my ENCOUNTER: Initial ACUITY: 1 day PAIN SCORE: 0/10 LOCATION: Right Hip FINDINGS: Examination of the right hip was performed with AP Pelvis. Postsurgical changes following right hip replacement are noted. Acetabular and femoral components are well seated and satisfactorily aligned. Vann catheter is in place. Left hip replacement is noted. CONCLUSION: 1. Satisfactory postoperative appearance of the right hip following total joint replacement. 2. Prior left hip replacement. 3. No acute process. Lalo Millard MD on March 12, 2017 at 11:14 Board Certified Radiologist. This report was verified electronically.
[2017-03-12] MEDS: methylPREDNISolone 4 MG TAB PO SCH (12:00)
[2017-03-12] MEDS: KETOROLAC TROMETHAMINE 30 MG/ML (IVP) VIAL IV PUSH SCH ×2 (12:30→21:54)
[2017-03-12] MEDS: POTASSIUM CHLORIDE 20 MEQ CONTROLLED RELEASE TAB PO SCH (12:40)
[2017-03-12] MEDS: FUROSEMIDE 40 MG TAB PO SCH (12:50)
[2017-03-12] MEDS: ceFAZolin 2 GM PREMIX 50 ML IV SCH ×2 (15:45→20:59)
[2017-03-12 17:15] VITALS: BP 133/70; PULSE 64; RESP 18; TEMP 97.2; O2SAT 98
[2017-03-12] MEDS: VANCOMYCIN INJ 1,000 MG in SODIUM CHLOR 0.9% 250 ML INJ 250 ML IV SCH (19:49)
[2017-03-12 20:00] VITALS: BP 133/62; PULSE 70; RESP 16; TEMP 99; O2SAT 99
[2017-03-12] MEDS ORDERED: ATORVASTATIN 40 MG TAB PO SCH (21:00)
[2017-03-12] MEDS: LISINOPRIL 10 MG TAB PO SCH (21:00)
[2017-03-13] VITALS: BP 154/73; PULSE 62; RESP 18; TEMP 97.6; O2SAT 97
[2017-03-13] MEDS: ceFAZolin 2 GM PREMIX 50 ML IV SCH ×3 (03:08→15:32)
[2017-03-13 04:00] VITALS: BP 138/91; PULSE 56; RESP 16; TEMP 97.3; O2SAT 99
[2017-03-13] MEDS: LEVOTHYROXINE SODIUM 25 MCG TAB PO SCH (05:42)
[2017-03-13 06:20] LABS: HEMATOCRIT 28.7 % (39.0-51.0); REVIEW FLAG FINAL
--- NOTE | 2017-03-13 06:45 | PD.ORT.PN ---
Subjective Subjective Remarks POD 1 s/p right FORD poly and head exchange doing well. pain controlled. reports out of bed with therapy yesterday Objective Vitals Vital Signs Date Time Temp Pulse Resp B/P (MAP) Pulse Ox O2 Delivery O2 Flow Rate FiO2 03/13/17 04:00 97.3 56 16 138/91 (107) 99 03/13/17 00:00 97.6 62 18 154/73 (100) 97 03/12/17 20:00 99.0 70 16 133/62 (85) 99 03/12/17 17:15 97.2 64 18 133/70 (91) 98 03/12/17 16:00 99.0 77 17 152/72 (98) 100 Nasal Cannula 2 03/12/17 15:00 77 17 152/72 (98) 100 Nasal Cannula 2 03/12/17 14:00 72 17 153/71 (98) 100 Nasal Cannula 2 03/12/17 13:00 68 17 122/64 (83) 90 Room Air 03/12/17 12:30 68 17 122/63 (82) 95 Room Air 03/12/17 12:00 68 17 126/64 (84) 94 Room Air 03/12/17 11:45 67 17 124/63 (83) 95 Room Air 03/12/17 11:30 97.5 03/12/17 11:15 65 17 124/65 (84) 94 Room Air 03/12/17 11:00 64 17 134/71 (92) 93 Room Air 03/12/17 10:45 63 17 131/69 (89) 94 Room Air 03/12/17 10:30 62 17 132/68 (89) 95 Room Air 03/12/17 10:24 Room Air 03/12/17 10:24 96.0 03/12/17 10:15 58 17 139/71 (93) 100 Room Air 03/12/17 10:00 66 18 134/73 (93) 100 Room Air 03/12/17 09:45 57 18 135/69 (91) 100 Room Air 03/12/17 09:30 64 17 124/60 (81) 100 Room Air 03/12/17 09:14 61 17 112/60 (77) 100 Nasal Cannula 2 I/O 03/12/17 03/12/17 03/12/17 03/13/17 03/13/1717 07:00 15:00 23:00 07:00 15:00 23:00 Intake Total 1400 ml 1586 ml 935 ml Output Total 1165 ml 1040 ml 1270 ml Balance 235 ml 546 ml -335 ml Intake Oral 480 ml 240 ml IV Total 1106 ml 695 ml Other 1400 ml Output Urine Total 775 ml 1025 ml 1150 ml Drainage Total 90 ml 15 ml 120 ml Estimated Blood Loss 300 ml # Bowel Movements 0 0 Result Diagram: 03/13/17 0541 Imaging Last 24 hours Impressions Hip and Pelvis X-Ray 03/12/17 0848 Signed Impressions: Service Date/Time: February 09:29 - CONCLUSION: 1. Satisfactory postoperative appearance of the right hip following total joint replacement. 2. Prior left hip replacement. 3. No acute process. Lalo Millard MD Objective Remarks RLE: dressings clean and dry. intact. NVI. +drain. Assessment & Plan Assessment and Plan 1) Right FORD poly and head exchange - POD 1 -WBAt -posterior hip precautions -daily dressing changes with primapore. begin xeroform POD 10 -DC drain today -clear for DC home with [facility] this afternoon if doing well with therapy -f/u wtkenyatta Perez or PIERCE in 2 weeks Jhonny Frank/Environmental Geologist PIERCE Mar 13, 2017 06:45
--- NOTE | 2017-03-13 06:46 | HHI.FF ---
Face to Face Verification Diagnosis: (1) Status post revision of total hip replacement Physical Therapy Gait training Hip: Total hip, Protocol: Right, Posterior hip precautions, Progress to weight bearing Canvas Knee Splint: Other (only while in bed) Right LE Weight Bearing: WB as tolerated Nursing Dressing Changes: Daily dressing change, Coverderm/Primapore (begin adding xeroform POD 10) I have seen patient Papito Jacinto on 03/13/17. My clinical findings support the need for the requested home health care services because: Ltd mobility - disease progression I certify that my clinical findings support that this patient is homebound because: Post-op weakness Jhonny Frank/First Darryl PELAYO Mar 13, 2017 06:46
[2017-03-13 08:00] VITALS: BP 154/89; PULSE 60; RESP 18; TEMP 97.2; O2SAT 99
[2017-03-13] MEDS ORDERED: ENOXAPARIN SODIUM 40 MG/0.4 ML SYRINGE SQ SCH (08:00)
[2017-03-13] MEDS: VANCOMYCIN INJ 1,000 MG in SODIUM CHLOR 0.9% 250 ML INJ 250 ML IV SCH (08:27)
[2017-03-13] MEDS: KETOROLAC TROMETHAMINE 30 MG/ML (IVP) VIAL IV PUSH SCH (08:27)
[2017-03-13] MEDS: LISINOPRIL 10 MG TAB PO SCH (08:27)
[2017-03-13] MEDS: POTASSIUM CHLORIDE 20 MEQ CONTROLLED RELEASE TAB PO SCH (08:28)
[2017-03-13] MEDS: methylPREDNISolone 4 MG TAB PO SCH (08:28)
[2017-03-13] MEDS: FUROSEMIDE 40 MG TAB PO SCH (08:28)
[2017-03-13] MEDS: LACTATED RINGER'S 1000 ML IV SCH (11:15)
[2017-03-13 12:00] VITALS: BP 143/67; PULSE 57; RESP 18; TEMP 96.3; O2SAT 99
[2017-03-13] MEDS ORDERED: DOCUSATE SODIUM 100 MG CAP PO SCH (21:00)
[2017-03-15] MEDS ORDERED: ETANERCEPT 25 MG SQ SCH (08:00)
== END 2017-03-13 17:50 | disposition home health service (06) | DRG 468 ==
LOC: HSDI 05:10 → N06A 17:05
PROVIDERS: ADMIT Orthopaedic Surgery Orthopaedic Trauma; ATTEND Orthopaedic Surgery Orthopaedic Trauma
PROC: 0SP909Z Removal of Liner from Right Hip Joint, Open Approach (ICD-10-PCS; 2017-03-12)
PROC: 0SUA09Z Supplement Right Hip Joint, Acetabular Surface with Liner, Open Approach (ICD-10-PCS; 2017-03-12)
PROC: 0SPR0JZ Removal of Synthetic Substitute from Right Hip Joint, Femoral Surface, Open Approach (ICD-10-PCS; 2017-03-12)
PROC: 0SB90ZZ Excision of Right Hip Joint, Open Approach (ICD-10-PCS; 2017-03-12)
PROC: 0SRR03A Replacement of Right Hip Joint, Femoral Surface with Ceramic Synthetic Substitute, Uncemented, Open Approach (ICD-10-PCS; principal; 2017-03-12 07:00)
DX: T84.050A Periprosthetic osteolysis of internal prosthetic right hip joint, initial encounter (principal); I35.0 Nonrheumatic aortic (valve) stenosis; T84.84XA Pain due to internal orthopedic prosthetic devices, implants and grafts, initial encounter; I10 Essential (primary) hypertension; E78.5 Hyperlipidemia, unspecified; I73.9 Peripheral vascular disease, unspecified; I25.10 Atherosclerotic heart disease of native coronary artery without angina pectoris; Z95.5 Presence of coronary angioplasty implant and graft; E03.9 Hypothyroidism, unspecified; M19.90 Unspecified osteoarthritis, unspecified site
CPT/HCPCS: 73502; 85014; 85018; 86850; 86900; 86901; 86920; 87015; 87070; 87102; 87116; 87176; 87205; 87206; 88305; 88311; 88331; C9290; J0690; J1100; J1644; J1650; J1885; J3370; J7050; J7120; J7509; L1830